=== PATIENT | female | born 1930 | race Caucasian/White ===

== ENCOUNTER → 2018-06-21 | Day surgery (SDC) | payer MEDICARE ==
[2018-06-15 09:53] LABS: BASOPHILS % 0.4 % (0.0-1.0); EOSINOPHILS # (AUTO) 0.1 (0.0-0.4); HEMATOCRIT 38.6 % (34.2-44.1); LYMPHOCYTES # (AUTO) 2.2 (1.0-3.2); LYMPHOCYTES % 41.3 % (18.0-39.1); MEAN CORPUSCULAR HEMOGLOBIN 32.3 pg (28-32); MEAN CORPUSCULAR HGB CONC 33.7 g/dL (31-35); MONOCYTES # (AUTO) 0.5 (0.2-0.8); MONOCYTES % 9.1 % (4.4-11.3); NEUTROPHILS # (AUTO) 2.5 (2.1-6.9); PLATELET COUNT 136 x10e3/uL (140-360); RED BLOOD COUNT 4.02 x10e6/uL (3.6-5.1); RED CELL DISTRIBUTION WIDTH 12.9 % (11.7-14.4)
[~2018-06-21] MED LIST: ANTIOXIDANT SO1 EACH PEG; ASPIR 8181 MG PO; CALCIUM PO; FENTANYL CITRATE/PF 100MCG/2 ML INJ ONE; LIDOCAINE HCL 2% LOCAL INJ 5 ML SDV VIAL INJ ONE; MULTIVITAMINS1 EAC7 PO; PROPOFOL IV EMULSION 10 MG/ML 20 ML VIAL ONE; TRAVATAN Z5 ML OP; [UNRECOGNIZED DRUG - OTHER] PO
--- OUTSIDE RECORDS SUMMARY | 2018-06-21 14:07 | XMS REPORT | Clinical Summary ---
Author Author [facility] Organization [facility] Address Unknown Phone Unavailable Care Team Providers Care Molding Manager Name Role Phone Siddhartha Scruggs MD PCP Allergies No Known Allergies Medications No known medications Active Problems Problem Noted Date Left shoulder pain 04/17/2017 Complete rotator cuff tear of left shoulder 04/17/2017 Family History Medical History Relation Name Comments No Known Problems Father Cancer Mother Relation Name Status Comments Father Mother colon cancer Social History Date Tobacco Use Types Packs/Day Years Used Never Smoker Smokeless Tobacco: Never Used Alcohol Use Drinks/Week oz/Week Comments No Sex Assigned at Date Recorded Not on file Industry Job Start Date Occupation Not on file Not on file Not on file Travel End Travel History Travel Start No recent travel history available. Last Filed Vital Signs Not on file Plan of Treatment Health Maintenance Due Date Last Done Comments SHINGLES VACCINES (#1) 04/23/1981 65+ PNEUMOCOCCAL VACCINE 04/23/1996 (1 of 2 - PCV13) PNEUMOCOCCAL 04/23/1996 POLYSACCHARIDE VACCINE AGE 65 AND OVER INFLUENZA VACCINE 09/20/2018 Results Not on fileafter 06/20/2017 Insurance Payer Benefit Subscriber ID Type Phone Address Plan / Group AETNA MEDICARE AETNA xxxxxxxx HMO MEDICARE HMO/PPO [facility] Advance Directives Patient has advance care planning documents on file. For more information, mary cowart contact: Audi Campos [address] [place] [address]
--- OUTSIDE RECORDS SUMMARY | 2018-06-21 14:07 | XMS REPORT ---
Author Author Siddhartha Scruggs Organization [employer] Address Unknown Phone Unavailable Care Team Providers Care Fine Arts Packer Name Role Phone Siddhartha Scruggs CP Unavailable Allergies, Adverse Reactions, Alerts Substance Reaction Event Type Cipro stomach upset Drug Allergy Antihistamine Info Not Available Drug Allergy Problems Problem Type Condition Code Onset Dates Condition Status Assessment Lower abdominal pain R10.30 Active Assessment Acute cystitis without hematuria N30.00 Active Problem Nocturnal enuresis N39.44 Active Problem Lumbar degenerative disc disease M51.36 Active Problem Overweight E66.3 Active Problem Osteopenia M85.80 Active Problem GERD (gastroesophageal reflux disease) K21.9 Active Problem Primary osteoarthritis of right knee M17.11 Active Problem Osteoporosis M81.0 Active Medications Medication Code System Code Instructions Start Date End Date Status Dosage Aspir-81 [facility] 88583643972 81 MG Orally Once a day Active 1 tablet Evista [facility] 98784806087 60 Active TAKE ONE TABLET BY MOUTH DAILY Aleve [facility] 84736080241 220 MG Orally every 12 hrs Active 1 tablet as needed Raloxifene HCl [facility] 63704349366 60 MG Orally Once a day Active 1 tablet Evista [facility] 18893296744 60 MG Active TAKE ONE TABLET BY MOUTH DAILY Calcium [facility] 76207934893 500 mg Orally three times a day (tid) Active 1 tablet with meals Multivitamin [facility] 14555-00154 100 mg Orally Active as directed Bactrim DS [facility] 23297677336 800-160 MG Orally Twice a day Mar 21, 2018 Mar 24, 2018 Active 1 tablet Anti-Oxidant [facility] 50858-51816 100 mg Orally Active as directed Travatan Z [facility] 08303511765 0.004 % Ophthalmic Once a day Active 1 drop into affected eye in the evening Vitamin D [facility] 54935640974 5000 UNIT Orally daily Active as directed Vital Signs Date/Time: Mar 21, 2018 BMI 27.25 Index Weight 149 lbs Height 62 in Cardiac Monitoring Heart Rate 64 /min Blood Pressure Diastolic 64 mm Hg Blood Pressure Systolic 122 mm Hg Results Name Result Date Reference Range Unit Abnormality Flag URINE AUTO W/O SCOPE ----Spec [place] 1.025 20180321 ----Turbidity cloudy 20180321 ----Glucose neg 20180321 ----Ketones neg 20180321 ----Blood neg 20180321 ----Bili neg 20180321 ----Color yello 20180321 ----pH 6.5 20180321 ----Leuk Est trace 20180321 ----Nitrite neg 20180321 ----Urobilinogen 0.2 20180321 ----Protein trace [id number] Summary Purpose [employer] Submission
--- OUTSIDE RECORDS SUMMARY | 2018-06-21 14:07 | XMS REPORT ---
Author Author Siddhartha Scruggs [facility] [employer] Address Unknown Phone Unavailable Care Team Providers Care Culture Manager Name Role Phone Siddhartha Scruggs CP Unavailable Allergies, Adverse Reactions, Alerts Substance Reaction Event Type Cipro stomach upset Drug Allergy Antihistamine Info Not Available Drug Allergy Problems Problem Type Condition Code Onset Dates Condition Status Assessment GERD (gastroesophageal reflux disease) K21.9 Active Assessment Osteoporosis M81.0 Active Assessment Osteopenia M85.80 Active Problem Osteoporosis M81.0 Active Problem GERD (gastroesophageal reflux disease) K21.9 Active Problem Nocturnal enuresis N39.44 Active Problem Primary osteoarthritis of right knee M17.11 Active Assessment Physical exam Z00.00 Active Problem Osteopenia M85.80 Active Problem Lumbar degenerative disc disease M51.36 Active Assessment Overweight E66.3 Active Assessment BMI 26.0-26.9,adult Z68.26 Active Assessment Acute cystitis with hematuria N30.01 Active Assessment Nocturnal enuresis N39.44 Active Assessment Vitamin D deficiency E55.9 Active Assessment Colon cancer screening Z12.11 Active Medications Medication Code System Code Instructions Start Date End Date Status Dosage VESIcare [facility] [address]-52 5 MG Orally Once a day September 14, 2016 Nov 13, 2016 Active 1 tablet Raloxifene HCl [facility] [address]-62 60 MG Orally Once a day Active 1 tablet Omeprazole [facility] [address]-05 20 mg as needed (prn) Active TAKE 1 CAPSULE ONE TIME DAILY Calcium [facility] 0[address]88-67898 500 mg Orally three times a day (tid) Active 1 tablet with meals Anti-Oxidant [facility] 14623-22830 100 mg Orally Active as directed Evista [facility] [address]-41 60 MG Orally Once a day Oct 27, 2015 Active 1 tablet Evista [facility] 03376260163 60 Orally Once a day Active 1 tablet Vitamin D [facility] 77099-16131 5000 UNIT Orally daily Active as directed Multivitamin [facility] 53648-90457 100 mg Orally Active as directed Travatan Z [facility] [address]-32 0.004 % Ophthalmic Once a day Active 1 drop into affected eye in the evening Bactrim DS [facility] [address]-13 800-160 MG Orally Twice a day September 15, 2016 Sep 22, 2016 Active 1 tablet Aleve [facility] [address]-43 220 MG Orally every 12 hrs Active 1 tablet as needed Aspir-81 [facility] [address]-67 81 MG Orally Once a day Active 1 tablet Vital Signs Date/Time: September 14, 2016 BMI 26.52 Index Weight 145 lbs Height 62 in Cardiac Monitoring Heart Rate 70 /min Blood Pressure Diastolic 64 mm Hg Blood Pressure Systolic 118 mm Hg Results Name Result Date Reference Range Unit Abnormality Flag URINE AUTO W/O SCOPE ----Spec [place] 1.015 [id number] ----Turbidity CLEAR 20160915 ----Glucose NEG 20160915 ----Ketones NEG 20160915 ----Blood TRACE 20160915 ----Bili SMALL+ 20160915 ----Color YELLOW 20160915 ----pH 5.0 20160915 ----Leuk Est MOD++ 20160915 ----Nitrite NEG 20160915 ----Urobilinogen 0.2 20160915 ----Protein TRACE [id number] Summary Purpose [employer] Submission
--- OUTSIDE RECORDS SUMMARY | 2018-06-21 14:07 | XMS REPORT | Summary of Care ---
Author Author [facility] Address Unknown Phone Unavailable Encounter HQ Janet_roselia(FIN) [id number] Date(s): 09/07/17 - 10/06/17 [facility] Encounter Diagnosis Laceration of muscle, fascia and tendon of long head of biceps, left arm, subseq uent encounter (Final) - 10/14/17 Impingement syndrome of left shoulder (Final) - Complete rotator cuff tear or rupture of left shoulder, not specified as traumat ic (Final) - Pain in left shoulder (Final) - Discharge Disposition: Home or Self Care Attending Physician: Jarrod Scherer MD Vital Signs No data available for this section Problem List Condition Effective Dates Status Health Status Informant Gastroesophageal Active reflux disease1 Glaucoma2 Active Osteoporosis3 Active 1Data migrated from [employer] on 07/19/14. 2Data migrated from [employer] on 07/19/14. 3Data migrated from [employer] on 07/19/14. Allergies, Adverse Reactions, Alerts Substance Reaction Severity Status diphenhydrAMINE1 Active 1Data migrated from [employer] on 06/19/14. Originally documented as ANTIHISTIMINES. vomitting , nausea Medications No data available for this section Results No data available for this section Immunizations No data available for this section Procedures No data available for this section Social History No data available for this section Assessment and Plan No data available for this section
--- OUTSIDE RECORDS SUMMARY | 2018-06-21 14:07 | XMS REPORT | Summary of Care ---
Author Author [facility] Address Unknown Phone Unavailable Encounter HQ Constancentr_roselia(FIN) [id number] Date(s): 07/07/17 - 08/05/17 [facility] Discharge Disposition: Home or Self Care Attending [...]
--- OUTSIDE RECORDS SUMMARY | 2018-06-21 14:07 | XMS REPORT ---
Author Author Lynn Montoya Organization [employer] Address Unknown Phone Unavailable Care Team Providers Care Hand Bender Name Role Phone Lynn Montoya CP Unavailable Allergies No Known Allergies Problems Problem Type Condition Code Onset Dates Condition Status Assessment Left anterior shoulder pain M25.512 Active Problem Nocturnal enuresis N39.44 Active Problem Lumbar degenerative disc disease M51.36 Active Problem Overweight E66.3 Active Problem Osteopenia M85.80 Active Problem GERD (gastroesophageal reflux disease) K21.9 Active Problem Primary osteoarthritis of right knee M17.11 Active Problem Osteoporosis M81.0 Active Medications No Known Medications Results No Known Results Summary Purpose [employer] Submission
--- OUTSIDE RECORDS SUMMARY | 2018-06-21 14:07 | XMS REPORT ---
Author Author Siddhartha Scruggs [facility] [employer] Address Unknown Phone Unavailable Care Team Providers Care Consumer Loan Manager Name Role Phone Siddhartha Scruggs CP Unavailable Allergies, Adverse Reactions, Alerts Substance Reaction Event Type Cipro stomach upset Drug Allergy Antihistamine Info Not Available Drug Allergy Problems Problem Type Condition Code Onset Dates Condition Status Assessment Hypernatremia E87.0 Active Assessment Hyperkalemia E87.5 Active Assessment Hyperglycemia R73.9 Active Problem Nocturnal enuresis N39.44 Active Problem Osteoporosis M81.0 Active Problem Overweight E66.3 Active Problem Lumbar degenerative disc disease M51.36 Active Problem Primary osteoarthritis of right knee M17.11 Active Problem GERD (gastroesophageal reflux disease) K21.9 Active Problem Osteopenia M85.80 Active Assessment Overweight E66.3 Active Assessment BMI 26.0-26.9,adult Z68.26 Active Assessment Encounter to discuss test results Z71.89 Active Assessment Nocturnal enuresis N39.44 Active Assessment Hx: UTI (urinary tract infection) Z87.440 Active Assessment GERD (gastroesophageal reflux disease) K21.9 Active Assessment Vitamin D deficiency E55.9 Active Assessment Osteoporosis M81.0 Active Medications Medication Code System Code Instructions Start Date End Date Status Dosage Aspir-81 [facility] [address]-28 81 MG Orally Once a day Active 1 tablet Multivitamin [facility] 38488-[address]74 100 mg Orally Active as directed Travatan Z [facility] [address]-54 0.004 % Ophthalmic Once a day Active 1 drop into affected eye in the evening VESIcare [facility] [address]-02 5 MG Orally Once a day September 14, 2016 Nov 13, 2016 Active 1 tablet Vitamin D [facility] [address] 5000 UNIT Orally daily Active as directed Calcium [facility] [address]-89586 500 mg Orally three times a day (tid) Active 1 tablet with meals Omeprazole [facility] [address]-09 20 mg as needed (prn) Active TAKE 1 CAPSULE ONE TIME DAILY Aleve [facility] [address]-55 220 MG Orally every 12 hrs Active 1 tablet as needed Anti-Oxidant [facility] 286[address]96 100 mg Orally Active as directed Raloxifene HCl [facility] [address]-03 60 MG Orally Once a day Active 1 tablet Vital Signs Date/Time: Sep 30, 2016 BMI 26.70 Index Weight 146 lbs Height 62 in Cardiac Monitoring Heart Rate 72 /min Blood Pressure Diastolic 64 mm Hg Blood Pressure Systolic 122 mm Hg Results No Known Results Summary Purpose [employer] Submission
--- OUTSIDE RECORDS SUMMARY | 2018-06-21 14:07 | XMS REPORT | Summary of Care ---
Author Author [facility] Address Unknown Phone Unavailable Encounter HQ Jessica(FIN) [id number] Date(s): 08/08/17 - 09/06/17 [facility] Encounter Diagnosis Complete rotator cuff tear or rupture of left shoulder, not specified as traumat ic (Final) - 09/11/17 Pain in left shoulder (Final) - Impingement syndrome of left shoulder (Final) - Discharge Disposition: Home [...]
--- OUTSIDE RECORDS SUMMARY | 2018-06-21 14:07 | XMS REPORT ---
Author Author Brandy Fan [facility] [employer] Address Unknown Phone Unavailable Care Team Providers Care Call Worker Person Name Role Phone Brandy Fan Unavailable Allergies, Adverse Reactions, Alerts Substance Reaction Event Type Cipro stomach upset Drug Allergy Antihistamine Info Not Available Drug Allergy Problems Problem Type Condition Code Onset Dates Condition Status Assessment Left arm pain M79.602 Active Assessment Hyperglycemia R73.9 Active Assessment Hyperkalemia E87.5 Active Assessment Hypernatremia E87.0 Active Problem Nocturnal enuresis N39.44 Active Problem Lumbar degenerative disc disease M51.36 Active Problem Overweight E66.3 Active Problem Osteopenia M85.80 Active Problem GERD (gastroesophageal reflux disease) K21.9 Active Problem Primary osteoarthritis of right knee M17.11 Active Problem Osteoporosis M81.0 Active Medications Medication Code System Code Instructions Start Date End Date Status Dosage Travatan Z [facility] 31929383875 0.004 % Ophthalmic Once a day Active 1 drop into affected eye in the evening Multivitamin [facility] 11482-89493 100 mg Orally Active as directed Anti-Oxidant [facility] 06655-44034 100 mg Orally Active as directed Raloxifene HCl [facility] 29521998829 60 MG Orally Once a day Active 1 tablet Aspir-81 [facility] 05836413596 81 MG Orally Once a day Active 1 tablet Omeprazole [facility] 27411124186 20 mg as needed (prn) Active TAKE 1 CAPSULE ONE TIME DAILY Vitamin D [facility] 43016312714 5000 UNIT Orally daily Active as directed Calcium [facility] 51091973200 500 mg Orally three times a day (tid) Active 1 tablet with meals Evista [facility] 49987700384 60 Active TAKE ONE TABLET BY MOUTH DAILY Aleve [facility] 91085456436 220 MG Orally every 12 hrs Active 1 tablet as needed Vital Signs Date/Time: Nov 30, 2016 BMI 26.70 Index Weight 146 lbs Height 62 in Cardiac Monitoring Heart Rate 69 /min Blood Pressure Diastolic 70 mm Hg Blood Pressure Systolic 114 mm Hg Results No Known Results Summary Purpose [employer] Submission
--- OUTSIDE RECORDS SUMMARY | 2018-06-21 14:07 | XMS REPORT | Continuity of Care Document ---
Author Author [facility] Interface Address Unknown Phone Unavailable Problems Problem Status Onset Date Classification Date Reported Comments Source Laceration of muscle, fascia and tendon of long head of biceps, left arm, subsequent encounter 10/14/2017 04/25/2018 [facility] LT SHOULDER PAIN Active 06/20/2017 [facility] M75.122 Active 06/20/2017 [facility] LEFT SHLD RCT Active 02/20/2017 [facility] M25.12 Active 01/03/2017 [facility] Gastroesophageal reflux disease<sup>1</sup> Active Problem 04/25/2018 Data migrated from [employer] on 07/19/14. [facility] Glaucoma<sup>2</sup> Active Problem 04/25/2018 Data migrated from [employer] on 07/19/14. [facility] Osteoporosis<sup>3</sup> Active Problem 04/25/2018 Data migrated from [employer] on 07/19/14. [facility] Impingement syndrome of left shoulder 04/25/2018 [facility] Complete rotator cuff tear or rupture of left shoulder, not specified as traumatic 04/25/2018 [facility] Pain in left shoulder 04/25/2018 [facility] Left arm pain Active Diagnosis 12/02/2016 [facility] Hyperglycemia Active Diagnosis 12/02/2016 [facility] Hyperkalemia Active Diagnosis 12/02/2016 [facility] Hypernatremia Active Diagnosis 12/02/2016 [facility] Nocturnal enuresis Active Problem 05/15/2018 [facility] Lumbar degenerative disc disease Active Problem 05/15/2018 [facility] Overweight Active Problem 05/15/2018 [facility] Osteopenia Active Problem 05/15/2018 [facility] GERD Active Problem 05/15/2018 [facility] Primary osteoarthritis of right knee Active Problem 05/15/2018 [facility] Osteoporosis Active Problem 05/15/2018 [facility] Left anterior shoulder pain Active Diagnosis 03/30/2017 [facility] Partial tear of left subscapularis tendon, initial encounter Active Diagnosis 04/15/2017 [facility] Tear of left supraspinatus tendon, subsequent encounter Active Diagnosis 04/15/2017 [facility] Tear of left infraspinatus tendon, initial encounter Active Diagnosis 04/15/2017 [facility] Acute cystitis with hematuria Active Diagnosis 03/30/2017 [facility] Burning with urination Active Diagnosis 03/30/2017 [facility] Tendonitis of shoulder, left Active Diagnosis 09/13/2017 [facility] Cough Active Diagnosis 04/07/2017 [facility] Acute URI Active Diagnosis 05/20/2017 [facility] BMI 26.0-26.9,adult Active Diagnosis 10/05/2016 [facility] Encounter to discuss test results Active Diagnosis 10/05/2016 [facility] Hx: UTI Active Diagnosis 10/05/2016 [facility] Vitamin D deficiency Active Diagnosis 10/05/2016 [facility] Acute pain of left shoulder Active Diagnosis 04/14/2017 [facility] Bradycardia Active Diagnosis 03/17/2017 [facility] Physical exam Active Diagnosis 10/20/2017 [facility] Serum potassium elevated Active Diagnosis 05/15/2018 [facility] PVC Active Problem 05/11/2016 [facility] Scoliosis Active Problem 05/11/2016 [facility] Encounter to discuss test results Active Diagnosis 11/07/2017 [facility] Hip pain, left Active Diagnosis 07/08/2015 [facility] Left inguinal pain Active Diagnosis 07/08/2015 [facility] Right knee pain Active Diagnosis 06/06/2015 [facility] Dysuria Active Diagnosis 01/08/2016 [facility] Frequent urination Active Diagnosis 01/08/2016 [facility] UTI symptoms Active Diagnosis 05/01/2018 [facility] Lower abdominal pain Active Diagnosis 05/05/2018 [facility] Acute cystitis without hematuria Active Diagnosis 04/13/2018 [facility] Bloating Active Diagnosis 05/05/2018 [facility] BMI 27.0-27.9,adult Active Diagnosis 05/05/2018 [facility] Family history of colon cancer Active Diagnosis 05/05/2018 [facility] Medications Medication Details Route Status Patient Instructions Ordering Provider Order Date Source Bactrim DS 1 tablet Orally Active 800-160 MG Orally Twice a day Ghebranious 03/21/2018 [facility] Macrobid 1 capsule with food Orally Active 100 mg Orally every 12 hrs Ghebranious 03/23/2017 [facility] Bactrim DS 1 tablet Orally Active 800-160 MG Orally Twice a day Ghebranious 09/15/2016 [facility] VESIcare 1 tablet Orally Active 5 MG Orally Once a day Ghebranious 09/14/2016 [facility] Bactrim DS 1 tablet Orally Active 800-160 MG Orally Twice a day Bunch 01/05/2016 [facility] Evista 1 tablet Orally Active 60 MG Orally Once a day Ghebranious 10/27/2015 [facility] Boniva 1 tablet Orally No Longer Active 150 MG Orally once a month Ghebranious 06/02/2015 [facility] Naprosyn 1 tablet as needed Orally Active 500 mg Orally every 12 hrs Ghebranious 06/02/2015 [facility] Travatan Z 1 drop into affected eye in the evening Ophthalmic Active 0.004 % Ophthalmic Once a day Denis [facility] Multivitamin as directed Orally Active 100 mg Orally Denis [facility] Anti-Oxidant as directed Orally Active 100 mg Orally Denis [facility] Raloxifene HCl 1 tablet Orally Active 60 MG Orally Once a day Denis [facility] Aspir-81 1 tablet Orally Active 81 MG Orally Once a day Denis [facility] Omeprazole TAKE 1 CAPSULE ONE TIME DAILY NA Active 20 mg as needed (prn) Ney [facility] Vitamin D as directed Orally Active 5000 UNIT Orally daily Denis [facility] Calcium 1 tablet with meals Orally Active 500 mg Orally three times a day (tid) Denis [facility] Evista TAKE ONE TABLET BY MOUTH DAILY NA Active 60 Denis [facility] Aleve 1 tablet as needed Orally Active 220 MG Orally every 12 hrs Denis [facility] Omeprazole TAKE 1 CAPSULE ONE TIME DAILY NA Active 20 mg as [facility] (prn) [facility] Aspir-81 1 tablet Orally Active 81 MG Orally Once a day [facility] [place] [facility] Travatan Z 1 drop into affected eye in the evening Ophthalmic Active 0.004 % Ophthalmic [facility] a [facility] Vitamin D as directed Orally Active 5000 UNIT Orally daily [facility] Calcium 1 tablet with meals Orally Active 500 mg Orally three times a day (tid) [facility] Omeprazole TAKE 1 CAPSULE ONE TIME DAILY NA Active 20 mg as needed (prn) [facility] Aleve 1 tablet as needed Orally Active 220 MG Orally every 12 hrs [facility] Raloxifene HCl 1 tablet Orally Active 60 MG Orally Once a day [facility] [place] [facility] Omeprazole TAKE 1 CAPSULE ONE TIME DAILY NA Active 20 mg as needed (prn) Ney [facility] Evista 1 tablet orally No Longer Active 60 MG orally Once a day [facility] [place] [facility] Allergies, Adverse Reactions, Alerts Substance Category Reaction Severity Reaction type Status Date Reported Comments Source diphenhydrAMINE<sup>1</sup> Assertion Drug allergy Active 06/29/2012 Data migrated from [employer] on 06/19/14. Originally documented as ANTIHISTIMINES. vomitting , nausea [facility] Cipro Adverse Reaction stomach upset Adverse Reaction Active 04/30/2018 [facility] Antihistamine Adverse Reaction Info Not Available Adverse Reaction Active 04/30/2018 [facility] Immunizations Immunization Date Given Site Status Last Updated Comments Source Results Order Name Results Value Reference Range Date Interpretation Comments Source Vital Signs Vital Sign Value Date Comments Source Weight 148 04/30/2018 [facility] Height 62 04/30/2018 [facility] Heart Rate 58 04/30/2018 [facility] Diastolic (mm Hg) 64 04/30/2018 [facility] Systolic (mm Hg) 110 04/30/2018 [facility] Weight 148 04/13/2018 [facility] Height 62 04/13/2018 [facility] Heart Rate 66 04/13/2018 [facility] Diastolic (mm Hg) 68 04/13/2018 [facility] Systolic (mm Hg) 100 04/13/2018 [facility] Weight 149 03/21/2018 [facility] Height 62 03/21/2018 [facility] Heart Rate 64 03/21/2018 [facility] Diastolic (mm Hg) 64 03/21/2018 [facility] Systolic (mm Hg) 122 03/21/2018 [facility] Weight 146 10/31/2017 [facility] Height 62 10/31/2017 [facility] Heart Rate 61 10/31/2017 [facility] Diastolic (mm Hg) 72 10/31/2017 [facility] Systolic (mm Hg) 116 10/31/2017 [facility] Weight 145 08/29/2017 [facility] Height 62 08/29/2017 [facility] Heart Rate 82 08/29/2017 [facility] Diastolic (mm Hg) 68 08/29/2017 [facility] Systolic (mm Hg) 118 08/29/2017 [facility] Weight 142 05/18/2017 [facility] Height 62 05/18/2017 [facility] Temperature Oral (F) 98.2 F 05/18/2017 [facility] Heart Rate 92 05/18/2017 [facility] Diastolic (mm Hg) 70 05/18/2017 [facility] Systolic (mm Hg) 120 05/18/2017 [facility] Weight 144 04/12/2017 [facility] Height 62 04/12/2017 [facility] Heart Rate 70 04/12/2017 [facility] Diastolic (mm Hg) 66 04/12/2017 [facility] Systolic (mm Hg) 105 04/12/2017 [facility] Weight 143 04/06/2017 [facility] Height 62 04/06/2017 [facility] Heart Rate 63 04/06/2017 [facility] Diastolic (mm Hg) 68 04/06/2017 [facility] Systolic (mm Hg) 106 04/06/2017 [facility] Weight 145 03/23/2017 [facility] Height 62 03/23/2017 [facility] Heart Rate 57 03/23/2017 [facility] Diastolic (mm Hg) 72 03/23/2017 [facility] Systolic (mm Hg) 124 03/23/2017 [facility] Weight 146 02/28/2017 [facility] Height 62 02/28/2017 [facility] Heart Rate 81 02/28/2017 [facility] Diastolic (mm Hg) 74 02/28/2017 [facility] Systolic (mm Hg) 128 02/28/2017 [facility] Weight 146 11/30/2016 [facility] Height 62 11/30/2016 [facility] Heart Rate 69 11/30/2016 [facility] Diastolic (mm Hg) 70 11/30/2016 [facility] Systolic (mm Hg) 114 11/30/2016 [facility] Weight 146 09/30/2016 [facility] Height 62 09/30/2016 [facility] Heart Rate 72 09/30/2016 [facility] Diastolic (mm Hg) 64 09/30/2016 [facility] Systolic (mm Hg) 122 09/30/2016 [facility] Weight 145 09/14/2016 [facility] Height 62 09/14/2016 [facility] Heart Rate 70 09/14/2016 [facility] Diastolic (mm Hg) 64 09/14/2016 [facility] Systolic (mm Hg) 118 09/14/2016 [facility] Weight 146 01/05/2016 [facility] Height 62 01/05/2016 [facility] Diastolic (mm Hg) 72 01/05/2016 [facility] Systolic (mm Hg) 112 01/05/2016 [facility] Weight 142 07/01/2015 [facility] Height 62 07/01/2015 [facility] Heart Rate 64 07/01/2015 [facility] Diastolic (mm Hg) 84 07/01/2015 [facility] Systolic (mm Hg) 122 07/01/2015 [facility] Weight 141 06/02/2015 [facility] Height 62 06/02/2015 [facility] Heart Rate 74 06/02/2015 [facility] Diastolic (mm Hg) 72 06/02/2015 [facility] Systolic (mm Hg) 124 06/02/2015 [facility] Encounters Location Location Details Encounter Type Encounter Number Reason For Visit Attending Provider ADM Date DC Date Status Source [facility] OPTICS TEST TECHNICIAN-Consult [id number] 03/04/2013 03/04/2013 [facility] OPTICS TEST TECHNICIAN-Consult [id number] 03/04/2013 03/04/2013 [facility] OPTICS TEST TECHNICIAN-Consult [id number] 03/04/2013 03/04/2013 [facility] OPTICS TEST TECHNICIAN-Consult [id number] 03/04/2013 03/04/2013 [facility] OPTICS TEST TECHNICIAN-Consult [id number] 03/04/2013 03/04/2013 [facility] Follow-Up [id number] 03/18/2013 03/18/2013 [facility] Follow-Up [id number] 03/18/2013 03/18/2013 [facility] Follow-Up [id number] 03/18/2013 03/18/2013 [facility] Follow-Up [id number] 03/18/2013 03/18/2013 [facility] Follow-Up [id number] 03/18/2013 03/18/2013 [facility] Unknown [id number] 04/12/2013 04/12/2013 [facility] Unknown [id number] 04/12/2013 04/12/2013 [facility] Unknown [id number] 04/12/2013 04/12/2013 [facility] Unknown [id number] 04/12/2013 04/12/2013 [facility] Unknown [id number] 04/12/2013 04/12/2013 [facility] Refill [id number] 06/06/2013 06/06/2013 [facility] Refill [id number] 06/06/2013 06/06/2013 [facility] Refill [id number] 06/06/2013 06/06/2013 [facility] Refill [id number] 06/06/2013 06/06/2013 [facility] Refill [id number] 06/06/2013 06/06/2013 [facility] FOLLOW UP [id number] 10/22/2013 10/22/2013 [facility] FOLLOW UP [id number] 10/22/2013 10/22/2013 [facility] FOLLOW UP [id number] 10/22/2013 10/22/2013 [facility] FOLLOW UP [id number] 10/22/2013 10/22/2013 [facility] FOLLOW UP [id number] 10/22/2013 10/22/2013 [facility] Unknown [id number] 11/05/2013 11/05/2013 [facility] Unknown [id number] 11/05/2013 11/05/2013 [facility] Unknown [id number] 11/05/2013 11/05/2013 [facility] Unknown [id number] 11/05/2013 11/05/2013 [facility] Unknown [id number] 11/05/2013 11/05/2013 [facility] refill [id number] 01/20/2014 01/20/2014 [facility] refill [id number] 01/20/2014 01/20/2014 [facility] refill [id number] 01/20/2014 01/20/2014 [facility] refill [id number] 01/20/2014 01/20/2014 [facility] refill [id number] 01/20/2014 01/20/2014 [facility] 6 MONTH FOLLOW UP [id number] 04/22/2014 04/22/2014 [facility] 6 MONTH FOLLOW UP [id number] 04/22/2014 04/22/2014 [facility] 6 MONTH FOLLOW UP [id number] 04/22/2014 04/22/2014 [facility] 6 MONTH FOLLOW UP [id number] 04/22/2014 04/22/2014 [facility] 6 MONTH FOLLOW UP [id number] 04/22/2014 04/22/2014 [facility] Needs referral [id number] 05/07/2014 05/07/2014 [facility] Needs referral [id number] 05/07/2014 05/07/2014 [facility] Needs referral [id number] 05/07/2014 05/07/2014 [facility] Needs referral [id number] 05/07/2014 05/07/2014 [facility] Needs referral [id number] 05/07/2014 05/07/2014 [facility] 2 week follow up [id number] 05/13/2014 05/13/2014 [facility] 2 week follow up [id number] 05/13/2014 05/13/2014 [facility] 2 week follow up [id number] 05/13/2014 05/13/2014 [facility] 2 week follow up [id number] 05/13/2014 05/13/2014 [facility] 2 week follow up [id number] 05/13/2014 05/13/2014 [facility] Unknown [id number] 05/16/2014 05/16/2014 [facility] Unknown [id number] 05/16/2014 05/16/2014 [facility] Unknown [id number] 05/16/2014 05/16/2014 [facility] [facility] Unknown [id number] 05/16/2014 05/16/2014 [facility] Unknown [id number] 05/16/2014 05/16/2014 [facility] back pain poss uti [id number] 09/29/2014 09/29/2014 [facility] back pain poss uti [id number] 09/29/2014 09/29/2014 [facility] back pain poss uti [id number] 09/29/2014 09/29/2014 [facility] back pain poss uti [id number] 09/29/2014 09/29/2014 [facility] back pain poss uti [id number] 09/29/2014 09/29/2014 [facility] BACK PAIN NOT BETTER/UA RECHECK [id number] 10/08/2014 10/08/2014 [facility] BACK PAIN NOT BETTER/UA RECHECK [id number] 10/08/2014 10/08/2014 [facility] BACK PAIN NOT BETTER/UA RECHECK [id number] 10/08/2014 10/08/2014 [facility] BACK PAIN NOT BETTER/UA RECHECK [id number] 10/08/2014 10/08/2014 [facility] BACK PAIN NOT BETTER/UA RECHECK [id number] 10/08/2014 10/08/2014 [facility] 2 week follow up [id number] 11/06/2014 11/06/2014 [facility] 2 week follow up [id number] 11/06/2014 11/06/2014 [facility] 2 week follow up [id number] 11/06/2014 11/06/2014 [facility] 2 week follow up [id number] 11/06/2014 11/06/2014 [facility] 2 week follow up [id number] 11/06/2014 11/06/2014 [facility] 6 MONTH FOLLOW UP [id number] 11/13/2014 11/13/2014 [facility] 6 MONTH FOLLOW UP [id number] 11/13/2014 11/13/2014 [facility] 6 MONTH FOLLOW UP [id number] 11/13/2014 11/13/2014 [facility] 6 MONTH FOLLOW UP [id number] 11/13/2014 11/13/2014 [facility] 6 MONTH FOLLOW UP [id number] 11/13/2014 11/13/2014 [facility] CIPRIANO [id number] 12/01/2014 12/01/2014 [facility] TMT- [id number] 12/01/2014 12/01/2014 [facility] TMT- [id number] 12/01/2014 12/01/2014 [facility] TMT- [id number] 12/01/2014 12/01/2014 [facility] TMT- [id number] 12/01/2014 12/01/2014 [facility] 6 MONTH FOLLOW UP [id number] 06/02/2015 06/02/2015 [facility] 6 MONTH FOLLOW UP [id number] 06/02/2015 06/02/2015 [facility] 6 MONTH FOLLOW UP [id number] 06/02/2015 06/02/2015 [facility] 6 MONTH FOLLOW UP [id number] 06/02/2015 06/02/2015 [facility] 6 MONTH FOLLOW UP [id number] 06/02/2015 06/02/2015 [facility] physical [id number] 07/01/2015 07/01/2015 [facility] physical [id number] 07/01/2015 07/01/2015 [facility] physical [id number] 07/01/2015 07/01/2015 [facility] physical [id number] 07/01/2015 07/01/2015 [facility] lab results [id number] 07/21/2015 07/21/2015 [facility] lab results [id number] 07/21/2015 07/21/2015 [facility] lab results [id number] 07/21/2015 07/21/2015 [facility] Unknown [id number] 10/27/2015 10/27/2015 [facility] Unknown [id number] 10/27/2015 10/27/2015 [facility] sick [id number] 01/05/2016 01/05/2016 [facility] [id number] [facility] 07/07/2017 08/06/2017 [facility] [id number] [facility] 08/08/2017 09/07/2017 [facility] Patients [id number] [facility] 09/07/2017 10/07/2017 [facility] Procedures Procedure Code Date Perfomer Comments Source
--- OUTSIDE RECORDS SUMMARY | 2018-06-21 14:07 | XMS REPORT ---
Author Author Garret Barrios Organization [employer] Address Unknown Phone Unavailable Care Team Providers Care Director Of Campus Recreation Name Role Phone Garret Barrios CP Unavailable Allergies No Known Allergies Problems Problem Type Condition Code Onset Dates Condition Status Assessment Serum potassium elevated E87.5 Active Problem Nocturnal enuresis N39.44 Active Problem Lumbar degenerative disc disease M51.36 Active Problem Overweight E66.3 Active Problem Osteopenia M85.80 Active Problem GERD (gastroesophageal reflux disease) K21.9 Active Problem Primary osteoarthritis of right knee M17.11 Active Problem Osteoporosis M81.0 Active Medications No Known Medications Results No Known Results Summary Purpose [employer] Submission
--- OUTSIDE RECORDS SUMMARY | 2018-06-21 14:07 | XMS REPORT | Summary of Care ---
Author Author [facility] Address Unknown Phone Unavailable Encounter [facility] Constancentr_roselia(FIN) [id number] Date(s): 08/08/17 - 09/06/17 [facility] Discharge Disposition: Home or Self Care Attending [...]
--- OUTSIDE RECORDS SUMMARY | 2018-06-21 14:08 | XMS REPORT ---
Author Author Lynn Montoya Organization [employer] Address Unknown Phone Unavailable Care Team Providers Care Director Professional Services Name Role Phone Lynn Montoya CP Unavailable Allergies No Known Allergies Problems Problem Type Condition Code Onset Dates Condition Status Problem Hyperkalemia E87.5 Active Problem Vitamin D deficiency E55.9 Active Problem GERD (gastroesophageal reflux disease) K21.9 Active Problem Osteopenia M85.80 Active Problem Osteoporosis M81.0 Active Problem Primary osteoarthritis of right knee M17.11 Active Problem PVC (premature ventricular contraction) I49.3 Active Problem Scoliosis M41.9 Active Problem Lumbar degenerative disc disease M51.36 Active Medications Medication Code System Code Instructions Start Date End Date Status Dosage Evista [facility] [address]-76 60 MG Orally Once a day Oct 27, 2015 Active 1 tablet Results No Known Results Summary Purpose [employer] Submission
--- OUTSIDE RECORDS SUMMARY | 2018-06-21 14:08 | XMS REPORT ---
Author Author Siddhartha Scruggs Organization [employer] Address Unknown Phone Unavailable Care Team Providers Care Health Management Consultant Name Role Phone Siddhartha Scruggs CP Unavailable Allergies, Adverse Reactions, Alerts Substance Reaction Event Type Cipro stomach upset Drug Allergy Antihistamine Info Not Available Drug Allergy Problems Problem Type Condition Code Onset Dates Condition Status Assessment Bradycardia R00.1 Active Assessment Left anterior shoulder pain M25.512 Active Problem Nocturnal enuresis N39.44 Active Problem Lumbar degenerative disc disease M51.36 Active Problem Overweight E66.3 Active Problem Osteopenia M85.80 Active Problem GERD (gastroesophageal reflux disease) K21.9 Active Problem Primary osteoarthritis of right knee M17.11 Active Problem Osteoporosis M81.0 Active Medications Medication Code System Code Instructions Start Date End Date Status Dosage Raloxifene HCl [facility] 99551729859 60 MG Orally Once a day Active 1 tablet Aleve [facility] 39063068421 220 MG Orally every 12 hrs Active 1 tablet as needed Multivitamin [facility] 16326-01855 100 mg Orally Active as directed Vitamin D [facility] 96865600670 5000 UNIT Orally daily Active as directed Anti-Oxidant [facility] 77522-95219 100 mg Orally Active as directed Travatan Z [facility] 31721391789 0.004 % Ophthalmic Once a day Active 1 drop into affected eye in the evening Aspir-81 [facility] 90332005818 81 MG Orally Once a day Active 1 tablet Evista [facility] 18303573340 60 Active TAKE ONE TABLET BY MOUTH DAILY Calcium [facility] 35798692875 500 mg Orally three times a day (tid) Active 1 tablet with meals Omeprazole [facility] 83688904024 20 mg as needed (prn) Active TAKE 1 CAPSULE ONE TIME DAILY Vital Signs Date/Time: Feb 28, 2017 BMI 26.70 Index Weight 146 lbs Height 62 in Cardiac Monitoring Heart Rate 81 /min Blood Pressure Diastolic 74 mm Hg Blood Pressure Systolic 128 mm Hg Results Name Result Date Reference Range Unit Abnormality Flag EKG Summary Purpose eClinicalWorks Submission
--- OUTSIDE RECORDS SUMMARY | 2018-06-21 14:08 | XMS REPORT ---
Author Author Siddhartha Scruggs [facility] [employer] Address Unknown Phone Unavailable Care Team Providers Care Instrument Repair Supervisor Name Role Phone Siddhartha Scruggs CP Unavailable Allergies, Adverse Reactions, Alerts Substance Reaction Event Type Antihistamine Info Not Available Drug Allergy Encounters Encounter Location Date Follow-Up [facility] Mar 18, 2013 FOLLOW UP [facility] Oct 22, 2013 Unknown [facility] Nov 05, 2013 refill [facility] Jan 20, 2014 Unknown [facility] Apr 12, 2013 Refill [facility] June 06, 2013 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 [facility] Mar 04, 2013 2 week follow up [facility] May 13, 2014 6 MONTH FOLLOW UP [facility] April 22, 2014 Needs referral [facility] May 07, 2014 6 MONTH FOLLOW UP [facility] June 02, 2015 6 MONTH FOLLOW UP [facility] Nov 13, 2014 LOVELY- [facility] Dec 01, 2014 BACK PAIN NOT BETTER/UA RECHECK [facility] Oct 08, 2014 2 week follow up [facility] Nov 06, 2014 Unknown [facility] May 16, 2014 back pain poss uti [facility] Sep 29, 2014 Problems Problem Type Condition ICD-9 Code Onset Dates Condition Status Assessment Osteoporosis M81.0 Active Problem Hyperkalemia E87.5 Active Problem Vitamin D deficiency E55.9 Active Problem GERD (gastroesophageal reflux disease) K21.9 Active Problem Osteopenia M85.80 Active Problem Osteoporosis M81.0 Active Problem Primary osteoarthritis of right knee M17.11 Active Problem PVC (premature ventricular contraction) I49.3 Active Problem Scoliosis M41.9 Active Problem Lumbar degenerative disc disease M51.36 Active Assessment Primary osteoarthritis of right knee M17.11 Active Assessment Right knee pain M25.561 Active Assessment GERD (gastroesophageal reflux disease) K21.9 Active Assessment Vitamin D deficiency E55.9 Active Medications Medication Code System Code Instructions Start Date End Date Status Dosage Omeprazole [facility] [address]-98 20 mg as needed (prn) Active TAKE 1 CAPSULE ONE TIME DAILY Travatan Z [facility] [address]-56 0.004 % Ophthalmic Once a day Active 1 drop into affected eye in the evening Vitamin D [facility] [address] 5000 UNIT Orally daily Active as directed Evista [facility] [address]-96 60 MG orally Once a day Inactive 1 tablet Aspir-81 [facility] [address]-53 81 MG Orally Once a day Active 1 tablet Anti-Oxidant [facility] 40385-28465 100 mg Orally Active as directed Calcium [facility] 80343-[address]82 500 mg Orally three times a day (tid) Active 1 tablet with meals Multivitamin [facility] 94735-87828 100 mg Orally Active as directed Naprosyn [facility] [address]-91 500 mg Orally every 12 hrs June 02, 2015 August 31, 2015 Active 1 tablet as needed Boniva [facility] [address]-97 150 MG Orally once a month June 02, 2015 August 25, 2016 Active 1 tablet Aleve [facility] [address]-57 220 MG Orally every 12 hrs Active 1 tablet as needed Social History Social History Element Qualifiers Date Reported Ethnicity . Status , Is irish your primary language? Yes June 02, 2015 children . 4 sons June 02, 2015 Tobacco Use: . Are you a: never smoker June 02, 2015 Use of recreational / street drugs? . Answer: No June 02, 2015 Marital Status: . - Ishmael June 02, 2015 Caffeine intake? . Status: No June 02, 2015 Do you exercise? . Answer: Yes, Type: walking June 02, 2015 Do you drink alcohol? . 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
--- OUTSIDE RECORDS SUMMARY | 2018-06-21 14:08 | XMS REPORT ---
Author Author Garret Barrios Organization [employer] Address Unknown Phone Unavailable Care Team Providers Care Offbearer Name Role Phone Garret Barrios CP Unavailable Allergies, Adverse Reactions, Alerts Substance Reaction Event Type Cipro stomach upset Drug Allergy Antihistamine Info Not Available Drug Allergy Encounters Encounter Location Date Follow-Up [facility] Mar 18, 2013 FOLLOW UP [facility] Oct 22, 2013 Unknown [facility] Nov 05, 2013 refill [facility] Jan 20, 2014 Unknown [facility] Apr 12, 2013 Refill [facility] June 06, 2013 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 [facility] Mar 04, 2013 2 week follow up [facility] May 13, 2014 sick [facility] Jan 05, 2016 Unknown [facility] Oct 27, 2015 6 MONTH FOLLOW UP [facility] April 22, 2014 Needs referral [facility] May 07, 2014 6 MONTH FOLLOW UP [facility] June 02, 2015 physical [facility] July 01, 2015 6 MONTH FOLLOW UP [facility] Nov 13, 2014 TMT-DR.G [facility] Dec 01, 2014 BACK PAIN NOT BETTER/UA RECHECK [facility] Oct 08, 2014 2 week follow up [facility] Nov 06, 2014 Unknown [facility] May 16, 2014 back pain poss uti [facility] Sep 29, 2014 lab results [facility] July 21, 2015 Problems Problem Type Condition ICD-9 Code Onset Dates Condition Status Assessment Dysuria R30.0 Active Problem Hyperkalemia E87.5 Active Problem Vitamin D deficiency E55.9 Active Assessment Frequent urination R35.0 Active Problem GERD (gastroesophageal reflux disease) K21.9 Active Problem Osteopenia M85.80 Active Problem Osteoporosis M81.0 Active Problem Primary osteoarthritis of right knee M17.11 Active Problem PVC (premature ventricular contraction) I49.3 Active Problem Scoliosis M41.9 Active Problem Lumbar degenerative disc disease M51.36 Active Medications Medication Code System Code Instructions Start Date End Date Status Dosage Bactrim DS [facility] [address]-13 800-160 MG Orally Twice a day Jan 05, 2016 Jan 10, 2016 Active 1 tablet Anti-Oxidant [facility] [address]92-75706 100 mg Orally Active as directed [facility]eprazole [facility] [address]-70 20 mg as needed (prn) Active TAKE 1 CAPSULE ONE TIME DAILY Multivitamin [facility] 60[address]-79339 100 mg Orally Active as directed Aleve [facility] [address]-50 220 MG Orally every 12 hrs Active 1 tablet as needed Calcium [facility] [address]-28282 500 mg Orally three times a day (tid) Active 1 tablet with meals Aspir-81 [facility] [address]-82 81 MG Orally Once a day Active 1 tablet Travatan Z [facility] [address]-37 0.004 % Ophthalmic Once a day Active 1 drop into affected eye in the evening Vitamin D [facility] 6[address] 5000 UNIT Orally daily Active as directed Evista [facility] [address]-62 60 MG Orally Once a day Oct 27, 2015 Active 1 tablet Social History Social History Element Qualifiers Date Reported Ethnicity . Status , Is venezuelan your primary language? Yes Jan 05, 2016 children . 4 sons Jan 05, 2016 Tobacco Use: . Are you a: never smoker Jan 05, 2016 Use of recreational / street drugs? . Answer: No Jan 05, 2016 Marital Status: . - Ishmael Jan 05, 2016 Caffeine intake? . Status: No Jan 05, 2016 Do you exercise? . Answer: Yes, Type: walking Jan 05, 2016 Do you drink alcohol? . 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 Jan 05, 2016 Family history Qualifier Description Comment Date Reported Maternal Grandmother Comment not available Jan 05, 2016 Paternal Grandmother Comment not available Jan 05, 2016 Siblings Comment not available Jan 05, 2016 Maternal Grandfather Comment not available Jan 05, 2016 Children Comment not available Jan 05, 2016 Father Comment not available Jan 05, 2016 Paternal Grandfather Comment not available Jan 05, 2016 Mother [place] Jan 05, 2016 Other: Comment not available Jan 05, 2016 Vital Signs Date/Time: Jan 05, 2016 Weight 146 lbs Height 62 in Blood Pressure Diastolic 72 mm Hg Blood Pressure Systolic 112 mm Hg Summary Purpose eClinicalWorks Submission
--- OUTSIDE RECORDS SUMMARY | 2018-06-21 14:08 | XMS REPORT ---
Author Author Shena Brewster [facility] eClinicalWorks Address Unknown Phone Unavailable Care Team Providers Care Photography And Prints Curator Name Role Phone Shena Brewster CP Unavailable Allergies, Adverse Reactions, Alerts Substance Reaction Event Type Cipro stomach upset Drug Allergy Antihistamine Info Not Available Drug Allergy Problems Problem Type Condition Code Onset Dates Condition Status Assessment Cough R05 Active Problem Nocturnal enuresis N39.44 Active Problem Lumbar degenerative disc disease M51.36 Active Problem Overweight E66.3 Active Problem Osteopenia M85.80 Active Problem GERD (gastroesophageal reflux disease) K21.9 Active Problem Primary osteoarthritis of right knee M17.11 Active Problem Osteoporosis M81.0 Active Medications Medication Code System Code Instructions Start Date End Date Status Dosage Raloxifene HCl [facility] 40563466021 60 MG Orally Once a day Active 1 tablet Anti-Oxidant [facility] 13046-29459 100 mg Orally Active as directed Vitamin D [facility] 79720638392 5000 UNIT Orally daily Active as directed Calcium [facility] 49925857316 500 mg Orally three times a day (tid) Active 1 tablet with meals Omeprazole [facility] 91309937453 20 mg as needed (prn) Active TAKE 1 CAPSULE ONE TIME DAILY Travatan Z [facility] 27910636070 0.004 % Ophthalmic Once a day Active 1 drop into affected eye in the evening Aleve [facility] 92999838435 220 MG Orally every 12 hrs Active 1 tablet as needed Evista [facility] 80578099262 60 Active TAKE ONE TABLET BY MOUTH DAILY Multivitamin [facility] 78156-69691 100 mg Orally Active as directed Aspir-81 [facility] 27268938740 81 MG Orally Once a day Active 1 tablet Vital Signs Date/Time: Apr 06, 2017 BMI 26.15 Index Weight 143 lbs Height 62 in Cardiac Monitoring Heart Rate 63 /min Blood Pressure Diastolic 68 mm Hg Blood Pressure Systolic 106 mm Hg Results Name Result Date Reference Range Unit Abnormality Flag CBC ----Platelets 156 [id number] ----NEUTROPHILS mid-0.8,gra-3.8 20170406 ----MCHC 32.0 [id number] ----MCH 31.4 20170406 ----MCV 98.4 [id number] ----WBC 7.5 20170406 ----RDW 11.8 20170406 ----RBC 4.42 20170406 ----Hemoglobin 13.9 20170406 ----Hematocrit 43.5 [id number] Chest 2 views- Xray Summary Purpose eClinicalWorks Submission
--- OUTSIDE RECORDS SUMMARY | 2018-06-21 14:08 | XMS REPORT ---
Author Author Lynn Montoya Organization eClinicalWorks Address Unknown Phone Unavailable Care Team Providers Care Hydraulic Strainer Operator Name Role Phone Lynn Montoya CP Unavailable Allergies No Known Allergies Problems Problem Type Condition Code Onset Dates Condition Status Problem Nocturnal enuresis N39.44 Active Problem Lumbar degenerative disc disease M51.36 Active Problem Overweight E66.3 Active Problem Osteopenia M85.80 Active Problem GERD (gastroesophageal reflux disease) K21.9 Active Problem Primary osteoarthritis of right knee M17.11 Active Problem Osteoporosis M81.0 Active Medications No Known Medications Results No Known Results Summary Purpose eClinicalWorks Submission
--- OUTSIDE RECORDS SUMMARY | 2018-06-21 14:08 | XMS REPORT ---
Author Author Lynn Montoya Organization eClinicalWorks Address Unknown Phone Unavailable Care Team Providers Care Instrumentation Controls Engineer Name Role Phone Lynn Montoya CP Unavailable Allergies No Known Allergies Problems Problem Type Condition Code Onset Dates Condition Status Assessment Physical exam Z00.00 Active Problem Nocturnal enuresis N39.44 Active Problem Lumbar degenerative disc disease M51.36 Active Problem Overweight E66.3 Active Problem Osteopenia M85.80 Active Problem GERD (gastroesophageal reflux disease) K21.9 Active Problem Primary osteoarthritis of right knee M17.11 Active Problem Osteoporosis M81.0 Active Medications No Known Medications Results No Known Results Summary Purpose eClinicalWorks Submission
--- OUTSIDE RECORDS SUMMARY | 2018-06-21 14:08 | XMS REPORT ---
Author Author Shena Brewster Organization eClinicalWorks Address Unknown Phone Unavailable Care Team Providers Care Learning Manager Name Role Phone Shena Brewster CP Unavailable Allergies, Adverse Reactions, Alerts Substance Reaction Event Type Cipro stomach upset Drug Allergy Antihistamine Info Not Available Drug Allergy Problems Problem Type Condition Code Onset Dates Condition Status Assessment Acute URI J06.9 Active Problem Nocturnal enuresis N39.44 Active Problem Lumbar degenerative disc disease M51.36 Active Problem Overweight E66.3 Active Problem Osteopenia M85.80 Active Problem GERD (gastroesophageal reflux disease) K21.9 Active Problem Primary osteoarthritis of right knee M17.11 Active Problem Osteoporosis M81.0 Active Medications Medication Code System Code Instructions Start Date End Date Status Dosage Aspir-81 [facility] 32258338676 81 MG Orally Once a day Active 1 tablet Travatan Z [facility] 17794379180 0.004 % Ophthalmic Once a day Active 1 drop into affected eye in the evening Evista [facility] 49740618572 60 Active TAKE ONE TABLET BY MOUTH DAILY Vitamin D [facility] 33719439599 5000 UNIT Orally daily Active as directed Raloxifene HCl [facility] 56634406187 60 MG Orally Once a day Active 1 tablet Anti-Oxidant [facility] 62597-28846 100 mg Orally Active as directed Aleve [facility] 38696105521 220 MG Orally every 12 hrs Active 1 tablet as needed Multivitamin [facility] 59859-99240 100 mg Orally Active as directed Calcium [facility] 85106390350 500 mg Orally three times a day (tid) Active 1 tablet with meals Omeprazole [facility] 11035598586 20 mg as needed (prn) Active TAKE 1 CAPSULE ONE TIME DAILY Vital Signs Date/Time: May 18, 2017 BMI 25.97 Index Weight 142 lbs Height 62 in Temperature 98.2 F Cardiac Monitoring Heart Rate 92 /min Blood Pressure Diastolic 70 mm Hg Blood Pressure Systolic 120 mm Hg Results Name Result Date Reference Range Unit Abnormality Flag DECADRON 1MGx4 Summary Purpose eClinicalWorks Submission
--- OUTSIDE RECORDS SUMMARY | 2018-06-21 14:08 | XMS REPORT ---
Author Author Siddhartha Scruggs [facility] eClinicalWorks Address Unknown Phone Unavailable Care Team Providers Care Special Investigator Name Role Phone Siddhartha Scruggs CP Unavailable Allergies, Adverse Reactions, Alerts Substance Reaction Event Type Cipro stomach upset Drug Allergy Antihistamine Info Not Available Drug Allergy Problems Problem Type Condition Code Onset Dates Condition Status Assessment Osteoporosis M81.0 Active Assessment Annual physical exam Z00.00 Active Assessment Encounter to discuss test results Z71.2 Active Problem Nocturnal enuresis N39.44 Active Problem Lumbar degenerative disc disease M51.36 Active Problem Overweight E66.3 Active Problem Osteopenia M85.80 Active Problem GERD (gastroesophageal reflux disease) K21.9 Active Problem Primary osteoarthritis of right knee M17.11 Active Problem Osteoporosis M81.0 Active Assessment Primary osteoarthritis of right knee M17.11 Active Assessment Lumbar degenerative disc disease M51.36 Active Assessment Overweight E66.3 Active Assessment Osteopenia M85.80 Active Assessment Nocturnal enuresis N39.44 Active Assessment GERD (gastroesophageal reflux disease) K21.9 Active Medications Medication Code System Code Instructions Start Date End Date Status Dosage Aspir-[address] [facility] 52259902544 81 MG Orally Once a day Active 1 tablet Vitamin D [facility] 94439511467 5000 UNIT Orally daily Active as directed Aleve [facility] 39045469365 220 MG Orally every 12 hrs Active 1 tablet as needed Raloxifene HCl [facility] 00979516408 60 MG Orally Once a day [place] 1 [place] [address] 100 mg Orally Active as directed Aleve [place] 97690272156 220 MG Orally every 12 hrs Active 1 tablet as needed Calcium [facility] 00211104098 500 mg Orally three times a day (tid) Active 1 tablet with meals Multivitamin [facility] 26849-66238 100 mg Orally Active as directed Travatan Z [facility] 24186356787 0.004 % Ophthalmic Once a day Active 1 drop into affected eye in the evening Vital Signs Date/Time: Oct 31, 2017 BMI 26.70 Index Weight 146 lbs Height 62 in Cardiac Monitoring Heart Rate 61 /min Blood Pressure Diastolic 72 mm Hg Blood Pressure Systolic 116 mm Hg Results No Known Results Summary Purpose eClinicalWorks Submission
--- OUTSIDE RECORDS SUMMARY | 2018-06-21 14:08 | XMS REPORT ---
Author Author Aliya Bates Organization eClinicalWorks Address Unknown Phone Unavailable Care Team Providers Care Scientist Immunology Name Role Phone Aliya Bates CP Unavailable Allergies, Adverse Reactions, Alerts Substance Reaction Event Type Cipro stomach upset Drug Allergy Antihistamine Info Not Available Drug Allergy Problems Problem Type Condition Code Onset Dates Condition Status Assessment UTI symptoms R39.9 Active Assessment Lower abdominal pain R10.30 Active Problem Nocturnal enuresis N39.44 Active Problem Lumbar degenerative disc disease M51.36 Active Problem Overweight E66.3 Active Problem Osteopenia M85.80 Active Problem GERD (gastroesophageal reflux disease) K21.9 Active Problem Primary osteoarthritis of right knee M17.11 Active Problem Osteoporosis M81.0 Active Medications Medication Code System Code Instructions Start Date End Date Status Dosage Multivitamin [facility] 38416-59635 100 mg Orally Active as directed Evista [facility] 68491759979 60 Active TAKE ONE TABLET BY MOUTH DAILY Aspir-81 [facility] 67754022795 81 MG Orally Once a day Active 1 tablet Anti-Oxidant [facility] 13659-02127 100 mg Orally Active as directed Raloxifene HCl [facility] 56662046944 60 MG Orally Once a day Active 1 tablet Calcium [facility] 12009946268 500 mg Orally three times a day (tid) Active 1 tablet with meals Vitamin D [facility] 15595769904 5000 UNIT Orally daily Active as directed Travatan Z [facility] 65521884687 0.004 % Ophthalmic Once a day Active 1 drop into affected eye in the evening Aleve [facility] 19532461855 220 MG Orally every 12 hrs Active 1 tablet as needed Vital Signs Date/Time: Apr 13, 2018 BMI 27.07 Index Weight 148 lbs Height 62 in Cardiac Monitoring Heart Rate 66 /min Blood Pressure Diastolic 68 mm Hg Blood Pressure Systolic 100 mm Hg Results No Known Results Summary Purpose eClinicalWorks Submission
--- OUTSIDE RECORDS SUMMARY | 2018-06-21 14:08 | XMS REPORT ---
Author Author Siddhartha Scruggs Organization eClinicalWorks Address Unknown Phone Unavailable Care Team Providers Care Tractor Crane Engineer Name Role Phone Siddhartha Scruggs CP Unavailable Allergies, Adverse Reactions, Alerts Substance Reaction Event Type Cipro stomach upset Drug Allergy Antihistamine Info Not Available Drug Allergy Problems Problem Type Condition Code Onset Dates Condition Status Assessment Osteoporosis M81.0 Active Assessment Tendonitis of shoulder, left M75.82 Active Problem Nocturnal enuresis N39.44 Active Problem Lumbar degenerative disc disease M51.36 Active Problem Overweight E66.3 Active Problem Osteopenia M85.80 Active Problem GERD (gastroesophageal reflux disease) K21.9 Active Problem Primary osteoarthritis of right knee M17.11 Active Problem Osteoporosis M81.0 Active Medications Medication Code System Code Instructions Start Date End Date Status Dosage Anti-Oxidant [facility] 24288-13180 100 mg Orally Active as directed Vitamin D [facility] 67333685800 5000 UNIT Orally daily Active as directed Multivitamin [facility] 44135-70880 100 mg Orally Active as directed Aleve [facility] 29920368200 220 MG Orally every 12 hrs Active 1 tablet as needed Aspir-81 [facility] 28155456819 81 MG Orally Once a day Active 1 tablet Travatan Z [facility] 29854064315 0.004 % Ophthalmic Once a day Active 1 drop into affected eye in the evening Raloxifene HCl [facility] 48133253508 60 MG Orally Once a day Active 1 tablet Evista [facility] 14502159620 60 Active TAKE ONE TABLET BY MOUTH DAILY Omeprazole [facility] 96083301160 20 mg as needed (prn) Active TAKE 1 CAPSULE ONE TIME DAILY Calcium [facility] 83960579795 500 mg Orally three times a day (tid) Active 1 tablet with meals Vital Signs Date/Time: August 29, 2017 BMI 26.52 Index Weight 145 lbs Height 62 in Cardiac Monitoring Heart Rate 82 /min Blood Pressure Diastolic 68 mm Hg Blood Pressure Systolic 118 mm Hg Results No Known Results Summary Purpose eClinicalWorks Submission
--- OUTSIDE RECORDS SUMMARY | 2018-06-21 14:08 | XMS REPORT ---
Author Author Shena Brewster Organization eClinicalWorks Address Unknown Phone Unavailable Care Team Providers Care Analytical Data Scientist Name Role Phone Shena Brewster CP Unavailable Allergies, Adverse Reactions, Alerts Substance Reaction Event Type Cipro stomach upset Drug Allergy Antihistamine Info Not Available Drug Allergy Problems Problem Type Condition Code Onset Dates Condition Status Assessment Acute pain of left shoulder M25.512 Active Problem Nocturnal enuresis N39.44 Active Problem Lumbar degenerative disc disease M51.36 Active Problem Overweight E66.3 Active Problem Osteopenia M85.80 Active Problem GERD (gastroesophageal reflux disease) K21.9 Active Problem Primary osteoarthritis of right knee M17.11 Active Problem Osteoporosis M81.0 Active Medications Medication Code System Code Instructions Start Date End Date Status Dosage Raloxifene HCl [facility] 00380152742 60 MG Orally Once a day Active 1 tablet Anti-Oxidant [facility] 99808-68584 100 mg Orally Active as directed Vitamin D [facility] 09762703625 5000 UNIT Orally daily Active as directed Evista [facility] 91732639403 60 Active TAKE ONE TABLET BY MOUTH DAILY Travatan Z [facility] 84335307094 0.004 % Ophthalmic Once a day Active 1 drop into affected eye in the evening Omeprazole [facility] [address]-68 20 mg as needed (prn) Active TAKE 1 CAPSULE ONE TIME DAILY Calcium [facility] 35896924684 500 mg Orally three times a day (tid) Active 1 tablet with meals Multivitamin [facility] 57[address]-97552 100 mg Orally Active as directed Aleve [facility] 28312746717 220 MG Orally every 12 hrs Active 1 tablet as needed Aspir-[address] [facility] 38972665565 81 MG Orally Once a day Active 1 tablet Vital Signs Date/Time: Apr 12, 2017 BMI 26.34 Index Weight 144 lbs Height 62 in Cardiac Monitoring Heart Rate 70 /min Blood Pressure Diastolic 66 mm Hg Blood Pressure Systolic 105 mm Hg Results No Known Results Summary Purpose eClinicalWorks Submission
--- OUTSIDE RECORDS SUMMARY | 2018-06-21 14:08 | XMS REPORT ---
Author Author Siddhartha Scruggs eClinicalWorks Address Unknown Phone Unavailable Care Team Providers Care Repair Electric Motor Assembler Name Role Phone Siddhartha Scruggs CP Unavailable Allergies, Adverse Reactions, Alerts Substance Reaction Event Type Antihistamine Info Not Available Drug Allergy Encounters Encounter Location Date Follow-Up [facility] Mar 18, 2013 FOLLOW UP [facility] Oct 22, 2013 Unknown [facility] Nov 05, 2013 refill [facility] Jan 20, 2014 Unknown [facility] Apr 12, 2013 Refill [facility] June 06, 2013 FLOOR LAYER TILE-Consult [facility] Mar 04, 2013 2 week follow up [facility] May 13, 2014 6 MONTH FOLLOW UP [facility] April 22, 2014 Needs referral [facility] May 07, 2014 6 MONTH FOLLOW UP [facility] June 02, 2015 physical [facility] July 01, 2015 6 MONTH FOLLOW UP [facility] Nov 13, 2014 TMT-DR.G Campuz[facility] Dec 01, 2014 BACK PAIN NOT BETTER/UA RECHECK [facility] Oct 08, 2014 2 week follow up [facility] Nov 06, 2014 Unknown [facility] May 16, 2014 back pain poss uti [facility] Sep 29, 2014 lab results [facility] July 21, 2015 Problems Problem Type Condition ICD-9 Code Onset Dates Condition Status Assessment Physical exam Z00.00 Active Problem Hyperkalemia E87.5 Active Problem Vitamin [...] Start Date End Date Status Dosage Aspir-81 [facility] [address]-92 81 MG Orally Once a day Active 1 tablet Anti-Oxidant [facility] 55927-63760 100 mg Orally Active as directed Vitamin D [facility] [address] 5000 UNIT Orally daily Active as directed Naprosyn [facility] [address]-18 500 mg Orally every 12 hrs June 02, 2015 August 31, 2015 Active 1 tablet as needed Travatan Z [facility] [address]-49 0.004 % Ophthalmic Once a day Active 1 drop into affected eye in the evening Omeprazole [facility] [address]-73 20 mg as needed (prn) Active TAKE 1 CAPSULE ONE TIME DAILY Calcium [facility] 57537-23419 500 mg Orally three times a day (tid) Active 1 tablet with meals Multivitamin [facility] [address]169 100 mg Orally Active as directed Boniva [facility] [address]-64 150 MG Orally once a month June 02, 2015 August 25, 2016 Active 1 tablet Aleve [facility] [address]-50 220 MG Orally every 12 hrs Active 1 tablet as needed Social History Social History Element Qualifiers Date Reported Ethnicity . Status , Is mongolian your primary language? Yes July 21, 2015 children . 4 sons July 21, 2015 Tobacco Use: . Are you a: never smoker July 21, 2015 Use of recreational / street drugs? . Answer: No July 21, 2015 Marital Status: . - Ishmael July 21, 2015 Caffeine intake? . Status: No July 21, 2015 Do you exercise? . Answer: Yes, Type: walking July 21, 2015 Do you drink alcohol? . 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
--- OUTSIDE RECORDS SUMMARY | 2018-06-21 14:08 | XMS REPORT ---
Author Author Siddhartha Scruggs [facility] eClinicalWorks Address Unknown Phone Unavailable Care Team Providers Care Metal Riveter Name Role Phone Siddhartha Scruggs CP Unavailable Allergies, Adverse Reactions, Alerts Substance Reaction Event Type Cipro stomach upset Drug Allergy Antihistamine Info Not Available Drug Allergy Problems Problem Type Condition Code Onset Dates Condition Status Assessment Left anterior shoulder pain M25.512 Active Assessment Acute cystitis with hematuria N30.01 Active Assessment Burning with urination R30.0 Active Assessment Tendonitis of shoulder, left M75.82 Active Problem Nocturnal enuresis N39.44 Active Problem Lumbar degenerative disc disease M51.36 Active Problem Overweight E66.3 Active Problem Osteopenia M85.80 Active Problem GERD (gastroesophageal reflux disease) K21.9 Active Problem Primary osteoarthritis of right knee M17.11 Active Problem Osteoporosis M81.0 Active Medications Medication Code System Code Instructions Start Date End Date Status Dosage Evista [facility] 92019225805 60 Active TAKE ONE TABLET BY MOUTH DAILY Vitamin D [facility] 46012603425 5000 UNIT Orally daily Active as directed Omeprazole [facility] 32563872857 20 mg as needed (prn) Active TAKE 1 CAPSULE ONE TIME DAILY Macrobid [facility] 09795400828 100 mg Orally every 12 hrs Mar 23, 2017 Mar 30, 2017 Active 1 capsule with food Calcium [facility] 19456175355 500 mg Orally three times a day (tid) Active 1 tablet with meals Aspir-81 [facility] 16855445238 81 MG Orally Once a day Active 1 tablet Anti-Oxidant [facility] 67558-35653 100 mg Orally Active as directed Raloxifene HCl ND 75919478150 60 MG Orally Once a day Active 1 tablet Aleve ND 79237417209 220 MG Orally every 12 hrs Active 1 tablet as needed Travatan Z ND 13872187349 0.004 % Ophthalmic Once a day Active 1 drop into affected eye in the evening Multivitamin [facility] 890[address]-62370 100 mg Orally Active as directed Vital Signs Date/Time: Mar 23, 2017 BMI 26.52 Index Weight 145 lbs Height 62 in Cardiac Monitoring Heart Rate 57 /min Blood Pressure Diastolic 72 mm Hg Blood Pressure Systolic 124 mm Hg Results No Known Results Summary Purpose eClinicalWorks Submission
--- OUTSIDE RECORDS SUMMARY | 2018-06-21 14:08 | XMS REPORT ---
Author Author Garret Barrios Organization [employer] Address Unknown Phone Unavailable Care Team Providers Care Virtual Customer Assistant Name Role Phone Garret Barrios CP Unavailable Allergies, Adverse Reactions, Alerts Substance Reaction Event Type Cipro stomach upset Drug Allergy Antihistamine Info Not Available Drug Allergy Problems Problem Type Condition Code Onset Dates Condition Status Assessment Bloating R14.0 Active Assessment Lower abdominal pain R10.30 Active Assessment BMI 27.0-27.9,adult Z68.27 Active Assessment Family history of colon cancer Z80.0 Active Problem Nocturnal enuresis N39.44 Active Problem Lumbar degenerative disc disease M51.36 Active Problem Overweight E66.3 Active Problem Osteopenia M85.80 Active Problem GERD (gastroesophageal reflux disease) K21.9 Active Problem Primary osteoarthritis of right knee M17.11 Active Problem Osteoporosis M81.0 Active Medications Medication Code System Code Instructions Start Date End Date Status Dosage Vitamin D [facility] 93829645115 5000 UNIT Orally daily Active as directed Evista [facility] 75630683606 60 Active TAKE ONE TABLET BY MOUTH DAILY Aspir-81 [facility] 13719913540 81 MG Orally Once a day Active 1 tablet Calcium [facility] 82063782450 500 mg Orally three times a day (tid) Active 1 tablet with meals Aleve [facility] 30950350456 220 MG Orally every 12 hrs Active 1 tablet as needed Anti-Oxidant [facility] 07888-64728 100 mg Orally Active as directed Travatan Z [facility] 92283263668 0.004 % Ophthalmic Once a day Active 1 drop into affected eye in the evening Raloxifene HCl [facility] 96511058500 60 MG Orally Once a day Active 1 [place] [address]26 100 mg Orally Active as directed Vital Signs Date/Time: April 30, 2018 BMI 27.07 Index Weight 148 lbs Height 62 in Cardiac Monitoring Heart Rate 58 /min Blood Pressure Diastolic 64 mm Hg Blood Pressure Systolic 110 mm Hg Results Name Result Date Reference Range Unit Abnormality Flag CBC ----Platelets 133L [id number] ----NEUTROPHILS MID-0.6,GRA-2.6 [id number] ----MCHC 30.8L [id number] ----MCH 30.4 [id number] ----MCV 98.9 [id number] ----WBC 5.3 [id number] ----RDW 12.8 [id number] ----RBC 4.50 [id number] ----Hemoglobin 13.7 [id number] ----Hematocrit 44.5 [id number] Summary Purpose [employer] Submission
--- OUTSIDE RECORDS SUMMARY | 2018-06-21 14:08 | XMS REPORT ---
Author Author Lynn Montoya Organization [employer] Address Unknown Phone Unavailable Care Team Providers Care Risk Adjustment Specialist Name Role Phone Lynn Montoya CP Unavailable [...]
--- OUTSIDE RECORDS SUMMARY | 2018-06-21 14:08 | XMS REPORT ---
Author Author Siddhartha Scruggs [employer] Address Unknown Phone Unavailable Care Team Providers Care Mop Worker Name Role Phone Siddhartha Scruggs CP Unavailable Encounters Encounter Location Date Follow-Up [facility] Mar 18, 2013 FOLLOW UP [facility] Oct 22, 2013 Unknown [facility] Nov 05, 2013 refill [facility] Jan 20, 2014 Unknown [facility] Apr 12, 2013 Refill [facility] June 06, 2013 DIRECTOR POST-Consult [facility] Mar 04, 2013 2 week follow up [facility] May 13, 2014 Unknown [facility] Oct 27, 2015 6 MONTH FOLLOW UP [facility] April 22, 2014 Needs referral [facility] May 07, 2014 6 MONTH FOLLOW UP [facility] June 02, 2015 physical [facility] July 01, 2015 6 MONTH FOLLOW UP [facility] Nov 13, 2014 TMT-DR.G Campuzano [facility] Dec 01, 2014 BACK PAIN NOT BETTER/UA RECHECK [facility] Oct 08, 2014 2 week follow up [facility] Nov 06, 2014 Unknown [facility] May 16, 2014 back pain poss uti [facility] Sep 29, 2014 lab results [facility] July 21, 2015 Problems Problem Type Condition ICD-9 Code Onset Dates Condition Status Problem Hyperkalemia [...] Instructions Start Date End Date Status Dosage Boniva [facility] [address]-17 150 MG Orally once a month June 02, 2015 August 25, 2016 Inactive 1 tablet Evista [facility] [address]-24 60 MG Orally Once a day Oct 27, 2015 Active 1 tablet Social History Social History Element Qualifiers Date Reported Ethnicity . Status , Is brazilian your primary language? 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
--- OUTSIDE RECORDS SUMMARY | 2018-06-21 14:08 | XMS REPORT ---
Author Author Siddhartha Scruggs [facility] [employer] Address Unknown Phone Unavailable Care Team Providers Care Civil Laboratory Technician Name Role Phone Siddhartha Scruggs CP Unavailable Allergies, Adverse Reactions, Alerts Substance Reaction Event Type Antihistamine Info Not Available Drug Allergy Encounters Encounter Location Date Follow-Up [facility] Mar 18, 2013 FOLLOW UP [facility] Oct 22, 2013 Unknown [facility] Nov 05, 2013 refill [facility] Jan 20, 2014 Unknown [facility] Apr 12, 2013 Refill [facility] June 06, 2013 CORN GRINDER-Consult [facility] Mar 04, 2013 2 week follow up [facility] May 13, 2014 6 MONTH FOLLOW UP [facility] April 22, 2014 Needs referral [facility] May 07, 2014 6 MONTH FOLLOW UP [facility] June 02, 2015 physical [facility] July 01, 2015 6 MONTH FOLLOW UP [facility] Nov 13, 2014 TMT-DR.G Campuzano [facility] Dec 01, 2014 BACK PAIN NOT BETTER/UA RECHECK [facility] Oct 08, 2014 2 week follow up [facility] Nov 06, 2014 Unknown [facility] May 16, 2014 back pain poss uti [facility] Sep 29, 2014 [...] Lumbar degenerative disc disease M51.36 Active Assessment Colon cancer screening Z12.11 Active Assessment Osteoporosis M81.0 Active Assessment Hip pain, left M25.552 Active Assessment PVC (premature ventricular contraction) I49.3 Active Assessment Left inguinal pain R10.30 Active Assessment Vitamin D deficiency E55.9 Active Medications Medication Code System Code Instructions Start Date End Date Status Dosage Omeprazole [facility] [address]-38 20 mg as needed (prn) Active TAKE 1 CAPSULE ONE TIME DAILY Aleve [facility] [address]-78 220 MG Orally every 12 hrs Active 1 tablet as needed Calcium [facility] 49759-23666 500 mg Orally three times a day (tid) Active 1 tablet with meals Vitamin D [facility] 60498-[address]68 5000 UNIT Orally daily Active as directed Boniva [facility] [address]-33 150 MG Orally once a month June 02, 2015 August 25, 2016 Active 1 tablet Naprosyn [facility] [address]-06 500 mg Orally every 12 hrs June 02, 2015 August 31, 2015 Active 1 tablet as needed Travatan Z [facility] [address]-36 0.004 % Ophthalmic Once a day Active 1 drop into affected eye in the evening Aspir-81 [facility] [address]-69 81 MG Orally Once a day Active 1 tablet Multivitamin [facility] 15923-80520 100 mg Orally Active as directed Anti-Oxidant [facility] 20437-75373 100 mg Orally Active as directed Social History Social History Element Qualifiers Date Reported Ethnicity . Status , Is guinean your primary language? Yes July 01, 2015 children . 4 sons July 01, 2015 Tobacco Use: . Are you a: never smoker July 01, 2015 Use of recreational / street drugs? . Answer: No July 01, 2015 Marital Status: . - Ishmael July 01, 2015 Caffeine intake? . Status: No July 01, 2015 Do you exercise? . Answer: Yes, Type: walking July 01, 2015 Do you drink alcohol? . 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
--- OUTSIDE RECORDS SUMMARY | 2018-06-21 14:08 | XMS REPORT ---
Author Author Shena Brewster Organization [employer] Address Unknown Phone Unavailable Care Team Providers Care Sighter Name Role Phone Shena Brewster CP Unavailable Allergies No Known Allergies Problems Problem Type Condition Code Onset Dates Condition Status Assessment Partial tear of left subscapularis tendon, initial encounter S43.82XA Active Assessment Tear of left supraspinatus tendon, subsequent encounter S46.812D Active Assessment Tear of left infraspinatus tendon, initial encounter S46.812A Active Problem Nocturnal enuresis N39.44 Active Problem Lumbar degenerative disc disease M51.36 Active Problem Overweight E66.3 Active Problem Osteopenia M85.80 Active Problem GERD (gastroesophageal reflux disease) K21.9 Active Problem Primary osteoarthritis of right knee M17.11 Active Problem Osteoporosis M81.0 Active Medications No Known Medications Results No Known Results Summary Purpose [employer] Submission
[2018-06-21 14:30] VITALS: BP 118/67
--- NOTE | 2018-06-21 19:51 | Operative Report ---
DATE OF PROCEDURE: SURGEON: Wayne Lees MD REASON FOR PROCEDURE: Left lower quadrant pain. DESCRIPTION OF PROCEDURE: After informed and written consent, premedications with monitored anesthesia care, pediatric video Olympus colonoscope was introduced into the rectum and all the way into the terminal ileum. Terminal ileum, cecum, ileocecal valve, ascending and descending colon appeared to be normal. Sigmoid showed mild diverticulosis. Retroflexion of the rectum was normal. IMPRESSION: Diverticulosis. RECOMMENDATIONS: We will use antispasmodics, high fiber diet, and metamucil. If symptoms persist, CT of abdomen and pelvis and further evaluation for referred pain maybe appropriate. Wayne Lees MD SR/MODL /[id number]
== END | disposition home or self-care (01) ==
LOC: OR 12:33
PROVIDERS: ATTEND Internal Medicine Gastroenterology
DX: R10.30 Lower abdominal pain, unspecified (principal); K57.30 Diverticulosis of large intestine without perforation or abscess without bleeding; K85.90 Acute pancreatitis without necrosis or infection, unspecified; K21.9 Gastro-esophageal reflux disease without esophagitis; R00.1 Bradycardia, unspecified; Z71.3 Dietary counseling and surveillance; E66.3 Overweight; Z88.8 Allergy status to other drugs, medicaments and biological substances; Z01.810 Encounter for preprocedural cardiovascular examination; Z01.812 Encounter for preprocedural laboratory examination; Z79.82 Long term (current) use of aspirin; Z68.26 Body mass index [BMI] 26.0-26.9, adult; Z87.891 Personal history of nicotine dependence
CPT/HCPCS: 36415; 45378; 85025; 93005; J2001; J2704